=== PATIENT | male | born 1995 | race African-American/Black ===

== ENCOUNTER 2023-12-15 23:36 | Emergency (ER) | payer MEDICAID, SELFPAY ==
[2023-12-15 23:36] VITALS: BP 120/83; PULSE 52; RESP 16; TEMP 36.4; O2SAT 100; BMI 25.4
--- NOTE | 2023-12-16 00:55 | CT_ITS ---
STUDY: CT BRAIN WITHOUT CONTRAST REASON FOR EXAM: Male, 28 years old patient with headache. RADIATION DOSAGE (If Supplied By Facility): CTDIvol = ( 44.99 ) mGy, DLP = ( 832.67 ) mGycm TECHNIQUE: Transaxial CT imaging of the brain was performed without administration of intravenous contrast material. Individualized dose optimization techniques were used for this CT. COMPARISON: No relevant priors. FINDINGS: Normal soft tissue structures. Normal calvarium. Normal size ventricles and extra-axial spaces for the patient''s age. Normal white matter tracts of the cerebral hemispheres. Normal basal ganglia and thalami. Normal brainstem. Normal cerebellum. There is no intracranial hemorrhage. There are no findings of an acute ischemic infarction. Normal visualized paranasal sinuses. CT/Brain/Head without Contrast IMPRESSION: No CT evidence for mass or acute intracranial hemorrhage. Electronically Signed: Michelle Kelly MD at 2:13 EDT ,
[2023-12-16 01:08] VITALS: BP 110/70; PULSE 60; RESP 16; O2SAT 99
[2023-12-16] MEDS: 0.9% Normal Saline (1000mL) 1,000 ML 999 ML IV (01:12)
[2023-12-16] MEDS: Ketorolac 30 MG/ML Syringe IV (01:12)
[2023-12-16] MEDS: Orphenadrine 60 MG/2 ML Ampul IV (01:12)
[2023-12-16] MEDS: DiphenhydrAMINE 50 MG/ML Syringe IV (01:12)
--- NOTE | 2023-12-16 01:42 | EX.ED.UPPERE ---
HPI History of Present Illness Chief Complaint: Upper Extremity Injury Informant: patient and friend Narrative Narrative: Patient is a 28-year-old male who reports no significant past medical history. He states he has had roughly 1 day of headache as well as right-sided neck. He states there is no trauma or excessive activity. He reports he feels some tingling and pain into his right arm. He states he was able to sleep and felt this would resolve his symptoms when he awoke they persisted and therefore he comes in for evaluation. He denies any sick symptoms but does report recent sick exposure. PFSH PFS Medical History no medical history no medical history Home Medications ?Medication ?Instructions ?Recorded ?Last Taken ?Type methocarbamol 500 mg tablet 1,000 mg (2 x 500 mg) PO 4X/DAY 12/16/23 Unknown Rx PRN Muscle pain/spasm #56 tabs naproxen 500 mg tablet,delayed 500 mg PO BID PRN headache 12/16/23 12/15/23 11:00 History release (EC-Naprosyn) Allergy/AdvReac Type Severity Reaction Status Date / Time No Known Allergies Allergy Verified 12/16/23 00:14 Social History Smoking Status: Never smoker ROS ROS ED Constitutional Constitutional ED: Denies chills or fever(s) Eyes Eyes: Denies blurry vision, change in vision or diplopia ENT ENT ED: Denies rhinorrhea or sore throat Cardiovascular Cardiovascular: Denies chest pain Respiratory/Chest Respiratory/Chest: Denies cough or dyspnea Gastrointestinal Gastrointestinal: Denies abdominal pain, diarrhea, nausea or vomiting Genitourinary Genitourinary ED: Denies dysuria Musculoskeletal Musculoskeletal: Reports neck pain Integumentary Denies rash Neurologic Neurologic: Reports headache(s); Denies paresthesias or weakness Hematologic/Lymphatic Hematologic/Lymphatic: Denies easy bleeding or easy bruising EXAM Physical Exam Const Vital Signs: 12/15/23 23:36 12/16/23 01:08 Temperature 97.6 F L Temperature Source Oral Pulse Rate 52 L 60 Respiratory Rate 16 16 Blood Pressure 120/83 H 110/70 Blood Pressure Mean 95 83 Pulse Ox 100 99 Oxygen Delivery Method Room Air Room Air Positive well nourished and well developed General Appearance ED: well developed HEENT Reports moist mucous membranes HEENT Narrative: No tongue or lip swelling no oral lesions no airway edema or compromise No signs of infection noted in the posterior pharynx Eyes PERRL and EOMs intact bilaterally Neck supple Neck Narrative: No bony deformity or step-off of the cervical spine no midline tenderness to palpation Patient does have right paracervical muscle tension and spasm noted that worsens with sidebending and rotation No nuchal rigidity noted Resp normal respiratory effort and clear to auscultation bilaterally Cardio regular rate and regular rhythm Back/Spine Back/Spine Narrative: Negative Spurling sign bilaterally Extremity normal to inspection and full ROM Neuro oriented x3, CN's II-XII intact bilaterally, moves all extremities, no focal motor deficits and no sensory deficits noted Neuro Narrative: Cranial nerves II through XII are grossly intact there are no focal neurologic deficits No pronator drift no dysmetria no truncal ataxia NIH stroke scale score of 0 Sensorium / Orientation: alert Motor Exam: strength 5/5 throughout Psych mental status grossly normal Skin no rashes or lesions noted MDM MDM MDM Narrative Medical decision making narrative: Patient arrived to the ER with stable vitals and a normal neurologic exam. He reported generalized headache with some irritation and pain into his right arm. History and exam is most consistent with cervical spasm leading to tension headache. However as differential also includes a spontaneous subarachnoid versus subdural hemorrhage versus brain mass versus infectious process such as COVID influenza or RSV I did elect to perform a CT scan and a viral swab. CT scan revealed no acute finding and viral swab was also negative. After receiving IV fluids Toradol and Benadryl and Norflex the patient did report improvement of his headache and muscle tension. His neurologic exam remained normal as well. Therefore at this time with overall negative workup and improvement of symptoms and the fact this appears to be more musculoskeletal in nature than truly neurologic or infectious there is no need for further workup and is otherwise safe for discharge. History & Record Review Discussion w/independent historian: Patient and Friend Discharge Plan Triage Chief Complaint: Upper Extremity Injury ED Provider: Doug De La Rosa Dx/Rx/DC Orders Clinical Impression: Cephalgia, Cervical paraspinal muscle spasm Instructions: ED Headache, Tension, ED Neck Spasm, No Trauma Prescriptions: New methocarbamol 500 mg tablet 1,000 mg PO 4X/DAY PRN (Reason: Muscle pain/spasm) Qty: 56 0RF No Action naproxen [EC-Naprosyn] 500 mg tablet,delayed release (DR/EC) 500 mg PO BID PRN (Reason: headache) Stand Alone Forms: ED Work / School Excuse Primary Care Provider: MARIANA PEARSON Referrals: MARINAA PEARSON [Other] Activity Restrictions/Additional Instructions: Your history and exam show that your pain and tingling into your arm is related to a tight muscle in the right side of your neck. Stretch and heat the area to reduce pain and speed healing. Continue with [id number]-xsretue medications such as Tylenol and/or Motrin or Aleve to help with pain and using muscle relaxer as directed. Return to the ER should you have any further concerns Print Language: Turkish Disposition Disposition: Home, Self Care
[2023-12-16 03:08] VITALS: BP 118/74; PULSE 65; RESP 16; TEMP 36.8; O2SAT 99
--- NOTE | 2023-12-16 03:14 | ED.RN ---
1510: LAB CALLED REGARDING PROLONGED TONE. READ TIME. I WAS INFORMED SOMEONE MUST HAVE FORGOT TO ENTER THE RESULTS.
== END 2023-12-16 03:24 | disposition home or self-care (01) ==
PROVIDERS: Emergency Provider Emergency Medicine; Visit Provider Emergency Medicine
DX: M62.838 Other muscle spasm (principal); R51.9 Headache, unspecified
CPT/HCPCS: 70450; 87631; 96361; 96374; 96375; 99284; J7030; A4216